=== PATIENT | male | born 1970 | race Caucasian/White ===

== ENCOUNTER 2020-05-01 22:56 | Emergency (ER) | payer OTHER ==
[2020-05-01 23:56] LABS: BASOPHIL 0.6 % (0-2); EOSINOPHIL 2.1 % (0-5); HCT 42.6 % (42.0-52.0); HGB 14.8 g/dl (13.2-18.0); LYMPHOCYTE 13.9 % (15-48); MCHC 34.7 g/dL (32.0-36.0); MONOCYTE 9.2 % (0-12); MPV 9.2 fL (6.0-9.5); NEUTROPHIL 73.9 % (41-80); NRBC 0; PLT 309 K/uL (150-400); RBC 4.63 M/uL (4.70-6.00); RDW 12.2 % (11.5-14.0); WBC 10.1 K/uL (4.0-10.5)
[2020-05-02 00:15] LABS: ALBUMIN 4.1 g/dL (3.4-5.0); BILIRUBIN - TOTAL 0.9 mg/dL (0.2-1.0); BUN/CREAT RATIO (CALC) 24.3 RATIO; CREATININE 0.7 mg/dL (0.67-1.17); POTASSIUM 4.1 mmol/L (3.5-5.1); TOTAL PROTEIN 8.1 g/dL (6.4-8.2)
[2020-05-02 00:21] LABS: BILIRUBIN NEGATIVE (NEGATIVE); BLOOD TRACE-INTACT Ery/uL (NEGATIVE); CLARITY CLEAR (CLEAR); COLOR YELLOW (YELLOW); GLUCOSE (U) NORMAL (NORMAL); LEUKOCYTES NEGATIVE Leu/uL (NEGATIVE); NITRITE NEGATIVE (NEGATIVE); PROTEIN NEGATIVE (NEGATIVE); UROBILINOGEN 0.2 mg/dL (0.2-1.0)
[2020-05-02 00:23] LABS: AMPHETAMINES NEGATIVE (NEGATIVE); BARBITURATES NEGATIVE (NEGATIVE); ECSTASY (MDMA) NEGATIVE (NEGATIVE); MARIJUANA (THC) NEGATIVE (NEGATIVE); METHADONE NEGATIVE (NEGATIVE); OPIATES NEGATIVE (NEGATIVE); OXYCODONE NEGATIVE (NEGATIVE)
[2020-05-02 00:30] LABS: SQUAMOUS EPITHELIAL CELLS RARE
== END 2020-05-02 00:50 | disposition home or self-care (01) ==
LOC: FER 22:56
PROVIDERS: Emergency Medicine Emergency Medical Services
DX: I10 Essential (primary) hypertension (principal); Z79.899 Other long term (current) drug therapy
CPT/HCPCS: 36415; 71045; 80053; 80305; 81001; 84484; 85025; 93005